=== PATIENT | female | born 1965 | race Caucasian/White ===

== ENCOUNTER 2016-03-13 13:02 | Outpatient (CLI) | payer MEDICAID ==
--- NOTE | 2016-03-13 15:38 | Ultrasound Report ---
RIGHT UPPER QUADRANT ULTRASOUND: HISTORY: Hepatitis C. Technique: Transabdominal ultrasound imaging with Doppler interrogation. FINDINGS: Cholecystectomy changes are noted. The CBD measures 1 cm in diameter which may be secondary to cholecystectomy. No intrahepatic biliary dilatation. Images of the liver parenchyma, pancreas, right kidney and aorta are within normal limits. No perihepatic ascites. IMPRESSION: Cholecystectomy, otherwise, unremarkable exam. No liver mass or advanced cirrhotic changes.
== END 2016-03-13 13:03 | disposition home or self-care (01) ==
LOC: US 13:02
PROVIDERS: ATTEND Family Medicine
DX: B19.20 Unspecified viral hepatitis C without hepatic coma (principal); Z90.49 Acquired absence of other specified parts of digestive tract
CPT/HCPCS: 76705